=== PATIENT | female | born 1970 | race American Indian/Alaskan Native ===

== ENCOUNTER 2017-12-29 08:59 | Emergency (ER) | payer OTHER ==
[2017-12-29 09:08] VITALS: BP 108/67
[2017-12-29] MEDS ORDERED: TORADOL ONE (09:26)
[2017-12-29] MEDS ORDERED: TORADOL IM ONE (09:27)
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
== END 2017-12-29 10:30 | disposition home or self-care (01) ==
LOC: ED 08:59
DX: M54.31 Sciatica, right side (principal); Z88.2 Allergy status to sulfonamides; Z90.49 Acquired absence of other specified parts of digestive tract; Z90.710 Acquired absence of both cervix and uterus
CPT/HCPCS: 72100; 96372; 99283; J1885

== ENCOUNTER 2018-03-16 13:05 | Outpatient (CLI) | payer OTHER ==
--- NOTE | 2018-03-18 13:31 | Vascular Lab Report ---
LEFT UPPER EXTREMITY VENOUS DUPLEX: REASON FOR EXAM: Pain and swelling of the left upper extremity COMMENTS ON THE LEFT: All arm veins visualized are freely compressible without evidence of internal echogenicity. The subclavian and internal jugular veins are free of thrombus. Flow is spontaneous and phasic throughout. COMMENTS ON THE RIGHT: A limited study of the jugular and subclavian veins shows no evidence of thrombus. IMPRESSION: No evidence of acute or chronic deep venous thrombosis in the left upper extremity.
== END 2018-03-16 13:06 | disposition home or self-care (01) ==
LOC: VAS 13:05
DX: M79.602 Pain in left arm (principal); F32.9 Major depressive disorder, single episode, unspecified; Z88.1 Allergy status to other antibiotic agents; Z90.710 Acquired absence of both cervix and uterus